=== PATIENT | male | born 1945 | race African-American/Black ===

== ENCOUNTER 2018-03-25 21:38 | Inpatient (IN) ==
[2018-03-25] MEDS ORDERED: TYLENOL PO ONE (21:53)
[2018-03-25] MEDS ORDERED: ROCEPHIN 1 GM in NS 50 ML IV ONE (22:02)
[2018-03-25] MEDS ORDERED: NS 1,000 ML IV ONE (22:02)
[2018-03-25] MEDS ORDERED: SOLU-MEDROL IV ONE (22:16)
[2018-03-25] MEDS ORDERED: LASIX IV ONE (22:17)
[2018-03-25] MEDS ORDERED: DUONEB (A & A) INH ONE (22:18)
[2018-03-25 22:26] LABS: BASO# 0.02 X1000 (0.0-0.2); BASO% 0.2 % (0.0-0.8); EOS# 0.14 X1000 (0.0-0.7); EOS% 1.4 % (0.0-10.0); HEMATOCRIT 39.9 % (42.0-52.0); HEMOGLOBIN 13.5 g/dL (14.0-18.0); IMM GRAN# 0.03 X1000 (0.0-0.04); IMM GRAN% 0.3 % (0.0-0.5); LYMPH# 0.73 X1000 (1.2-3.4); LYMPH% 7.5 % (20.5-51.1); MCH 30.8 PG (27-31); MCHC 33.8 g/dL (33-37); MCV 90.9 FL (81-99); MONO% 8.2 % (1.7-9.3); MPV 9.5 FL (7.4-10.4); NEUT# 7.99 X1000 (1.4-6.5); NEUT% 82.4 % (42.2-75.2); PLT 236 X1000 (130-400); RBC 4.39 XMIL (4.7-6.1); RDW 12.4 % (11.5-14.5); WBC 9.71 X1000 (4.8-10.8)
[2018-03-25 22:33] LABS: BE 3.1 mmoll (-3.0-3.0); BLOOD TYPE ARTERIAL; HCO3-(ACT) 27.2 mmoll (20.0-26.0); METHB 1.4 % (0.0-1.5); O2(CT) 16.8 mL/dL (15.0-23.0); O2HB 90.4 % (95.0-99.0); PCO2(98.6) 38 mmHg (35-45); PO2(98.6) 56 mmHg (60-100); SAMPLE BLOOD; THB 13.2 g/dL (11.5-17.4); pH(98.6) 7.46 (7.35-7.45)
[2018-03-25 22:34] LABS: ALLEN TEST NO; MODALITY VENTIMASK
[2018-03-25 22:53] LABS: ALBUMIN 3.7 g/dL (3.5-5.0); CALCIUM 9.1 mg/dL (8.8-10.2); CREATININE 1.3 mg/dL (0.7-1.2); POTASSIUM 3.8 mmol/L (3.5-5.1); TOTAL BILIRUBIN 0.7 mg/dL (0.20-1.00); TOTAL PROTEIN 7.6 g/dL (6.3-8.3)
--- NOTE | 2018-03-25 23:47 | EKG Report ---
Test Performed on : 03/25/2018 10:03:31 PM Test Reason : sob Blood Pressure : / mmHG Vent. Rate : 127 BPM Atrial Rate : 127 BPM P-R Int : 150 ms QRS Dur : 088 ms QT Int : 302 ms P-R-T Axes : 066 -04 044 degrees QTc Int : 438 ms Sinus tachycardia. Minimal voltage criteria for LVH, may be normal variant Borderline ECG When compared with ECG of 01-MAY-2012 16:37, ST no longer depressed in Inferior leads Unconfirmed Result
--- NOTE | 2018-03-26 01:15 | PROVIDER DOCUMENTATION ---
This chart was entered by Leny Kwan Scribe, acting as scribe for Jocelin Mcdermott MD. HPI-General Adult - General Chief Complaint: Fever Stated Complaint: BODY ACHES Time Seen by Provider: 03/25/18 22:00 Source: patient Allergies/Adverse Reactions: Patient Allergies Allergy/AdvReac Type Severity Reaction Status Date / Time No Known Allergies Allergy Verified 05/01/12 17:26 Home Medications: Home Medication List Medication Instructions Recorded Confirmed Last Taken Type Albuterol 0.5% INH Conc [Albuterol 2.5 mg INH Q4H PRN PRN 05/01/12 12/13/14 16:00 History 0.5% INH Conc For Hyperkalemia] Albuterol Sulfate [Proair Hfa] 2 puff PO BID 05/01/12 12/13/14 05/02/12 16:00 History Aspirin EC 81 mg PO DAILY 05/01/12 12/13/14 05/02/12 15:00 History Prednisone 20 mg PO PRN PRN 05/01/12 12/13/14 05/02/12 16:00 History Azilsartan Medoxomil [Edarbi] 40 mg PO DAILY 12/13/14 12/13/14 Unknown History Tamsulosin HCl [Flomax] 0.4 mg PO DAILY 5 Days #5 cap 03/20/18 Unknown Rx - History of Present Illness -Gen Adult Nature of Presenting Problems: Patient came to the ED due to SOB started yesterday, getting worse associated with cough and wheezing. he said they inserted hanks catheter few days ago due to difficulty with urination. Location of Pain/Injury: reports: generalized Pain Radiation: reports: no radiation Quality of Pain: reports: aching Severity: reports: moderate Onset/Duration: reports: 24 hours ago Timing: reports: still present Context/Activities at Onset: reports: light activity Modifying Factors: improves with: exercise (unable to walke grwather than half a block with out dyspnea), lying down (worsens symptoms. pt sleeps on 3 pillows normally) Associated Symptoms: reports: cough, dizziness, fatigue, fever/chills, headaches , malaise, muscle aches, shortness of breath, weakness, trouble walking. denies : chest pain, EENT symptoms Similar Symptoms Previously?: Yes Recently seen or treated by another doctor?: Yes (03/20/18-catheter placed) Review of Systems - Adult - REVIEW OF SYSTEMS - ADULT Constitutional: reports: chills, fever, fatique Eyes: denies: discharge, redness Ears, Nose, Mouth & Throat: denies: ear pain, sinus problem, throat pain Cardiovascular: reports: edema, other (JOHNSON). denies: chest pain, palpitations, syncope Respiratory: reports: cough, dyspnea on exertion, shortness of breath Gastrointestinal: reports: no symptoms reported Genitourinary: reports: no symptoms reported, other (pt does have urinary catheter in place) Musculoskeletal: reports: muscle aches, muscle weakness Integumentary: reports: no symptoms reported Neurological: reports: dizziness/vertigo. denies: headache/migraines, seizure, syncope Allergic/Immunologic: reports: no symptoms reported Past History - Adult - PAST MEDICAL HISTORY-ADULT Review of Records: reports: Old Records Reviewed, Nursing Assessment Review, Medications Reviewed, Social history reviewed & non-contributory. Major Childhood Illnesses: reports: denies history Cardiovascular: reports: HTN (been on med for 25 years.) Respiratory: reports: asthma Gastrointestinal: reports: denies history Obstetrical/Gynecological: reports: denies history Genitourinary: reports: denies history Musculoskeletal: reports: denies history Neurological: reports: denies history Endocrine/Immune: reports: denies history Other Conditions: reports: denies history - PRIOR SURGERIES/PROCEDURES Surgical/Procedure History: reports: other (sinus, prostate cancer, hernia repair) - IMMUNIZATION STATUS Childhood Immunizations: See Nurse Assessment Flu Vaccine: See Nurse Assessment - FAMILY HISTORY Family History: reviewed, not pertinent - SOCIAL HISTORY Smoking: non-smoker Substance Use: none/never Living Situation: family Physical Exam-General - PHYSICAL EXAM-ADULT Initial Vital Signs Reviewed: Yes - CONSTITUTIONAL General Appearance: alert, moderate distress - EYES Eyes: PERRL/EOMI - HEAD, EARS, NOSE, MOUTH & THROAT HENMT: normocephalic/atraumatic, moist mucous membranes - RESPIRATORY Respiratory: no pleuratic chest pain, decreased breath sounds (decreased air entry bilaterally), accessory muscle use, increased rate. negative: crackles, rales, rhonchi, wheezing - CARDIOVASCULAR Cardiovascular: normal peripheral pulses, tachycardia (130) - GASTROINTESTINAL (ABDOMEN) Abdominal Exam: normal bowel sounds, non tender, soft - MUSCULOSKELETAL Extremity: other (bilateral LE 3+pitting edema up to below knees) - SKIN Integumentary: normal color, normal turgor, warm/dry - NEUROLOGIC Neurologic: grossly normal Progress - PLAN OF CARE/RESULTS Progress/Plan/Lab Results: Vital Signs - 8 hr 03/25/18 21:46 Temperature 101.8 F H Pulse Rate 130 H Respiratory Rate 26 H O2 Sat by Pulse Oximetry 88 L Orders Category Date Time Status Nursing- Obtain EKG once Care 03/25/18 21:53 Active cxr [CHEST-2 VIEWS] [RAD] Stat Exams 03/25/18 22:03 Ordered ABG [RESP] Routine Lab 03/25/18 21:53 Ordered BLOOD CULTURE [BLDCUL] Stat Lab 03/25/18 21:53 Uncollected CBC WITH DIFF [HEME] Stat Lab 03/25/18 21:53 Ordered COMPREHENSIVE METABOLIC PANEL [CHEM] Stat Lab 03/25/18 21:[address] Stat Lab 03/25/18 21:53 Ordered LACTATE, PLASMA [CHEM] Stat Lab 03/25/18 21:[address] W/POSS RFLX CULT [URINALYSIS] Stat Lab 03/25/18 22:03 Uncollected 0.9% Sodium Chloride Inj [Ns] 1,000 ml Med 03/25/18 22:02 Active IV 999 mls/hr Acetaminophen [Tylenol] Med 03/25/18 21:53 Discontinued 1,000 mg PO NOW ONE CefTRIAXONE [Rocephin] 1 gm Med 03/25/18 22:02 Active 0.9% Sodium Chloride Inj [Ns] 50 ml IV NOW EKG [EKG] Stat Ther 03/25/18 21:53 Ordered Patient care, assessment and plan discussed with the attending physician Dr. Simpson and he agree with the plan as documented. sepsis protocol initiated early. Result Diagrams: 03/25/18 22:13 03/25/18 22:13 - REASSESSMENT Reassessment #1 Time Reassessed: 23:03 Status: improving (patient said his breathign improved alot. on exam fair air entry. B/L exp. wheeze.) Reassessment #2 Status: improving (feels better.) - EKG 1 Time of EKG reading by physician:: 22:03 EKG Read and Signed by:: Jocelin Mcdermott EKG Interpretation (*Must complete 3 of following elements*): Abnormal Rate: 127 Rhythm: sinus tachycardia [place]: normal QRS: LVH (may be normal varient) [place] Interval: normal ST Wave: normal - CONSULTS/PCP/HOSPITALIST Notification #1 *Consult/PCP/Hospitalist*: Dr. Corona Time Discussed: 00:17 Consult Disposition: Admit (Accepted. Hx, PE and DDX. discussed with Dr. Corona.) Departure - Departure Date of Disposition Decision: 03/26/18 Time of Disposition Decision: 00:17 DIAGNOSIS: Sepsis Qualifiers: Sepsis type: sepsis due to unspecified organism Qualified Code(s): A41.9 - Sepsis, unspecified organism Acute respiratory failure Qualifiers: Respiratory failure complication: hypoxia Qualified Code(s): J96.01 - Acute respiratory failure with hypoxia Asthma exacerbation Qualifiers: Asthma severity: severe Asthma persistence: unspecified Qualified Code(s): J45.901 - Unspecified asthma with (acute) exacerbation Disposition: ADMITTED INPATIENT 09 Certified Medical Emergency: Emergent Condition: Serious Referrals and Follow-Ups: Julian Kruger MD [Primary Care Provider] - - Critical Care Note This patient required my direct & personal management of CC.: Yes Total Time (mins): 30 Critical Care Statement: This patient required my direct personal management to treat or rule out processes, the absence of which, could potentiallly result in sudden, clinically significant life or limb threatening deterioration. Attestation - Physician/ ITALO Attestation Patient care was provided by Advanced Practice Provider:: No The physician spent face to face time with patient:: Yes Advanced Practice Provider documentation review:: Supervising physician onsite and consulted in the evaluation and care of this patient. The physician did have a face to face encounter with the patient. This chart was documented by the indicated scribe, (Leny Kwan Scribe) and accurately reflects the services I performed and decisions made by me, Jocelin Mcdermott MD, as attested by the provider's signature.
[2018-03-26] MEDS ORDERED: TYLENOL PO PRN (01:19)
[2018-03-26] MEDS ORDERED: CARDIZEM IV ONE (01:20)
[2018-03-26] MEDS ORDERED: ZOFRAN IV PRN (01:22)
[2018-03-26] MEDS ORDERED: TORADOL IV ONE (01:29)
[2018-03-26] MEDS: NS 1,000 ML IV SCH ×2 (01:30→15:00)
[2018-03-26] MEDS ORDERED: VANCOMYCIN 1 GM/NS 1 GM/250 ML IVPB IV ONE (01:36)
[2018-03-26 01:38] LABS: INFLUENZA A NEGATIVE (NEGATIVE); INFLUENZA B NEGATIVE (NEGATIVE)
[2018-03-26] MEDS: DUONEB (A & A) INH PRN ×6 (03:00→18:25)
[2018-03-26] MEDS ORDERED: BLISTEX MEDICATED BERRY LIP BALM TOP PRN (05:34)
--- NOTE | 2018-03-26 06:05 | Diag Imaging Result Doc PS360 ---
EXAM: CHEST-PORTABLE HISTORY: sepsis, desat TECHNIQUE: Portable chest single view COMPARISON: 12/13/2014 FINDINGS: The lungs are well expanded. The heart is not enlarged. The vessels are not distended. There are no infiltrates. No effusion identified. IMPRESSION: No pneumonia. Electronically signed by Christ Cruz 03/26/2018 6:03 AM
[2018-03-26 08:43] LABS: BILIRUBIN URINE NEGATIVE (NEGATIVE); BLOOD URINE 4+ (NEGATIVE); CLARITY CLEAR (CLEAR); COLOR YELLOW; KETONE URINE NEGATIVE (NEGATIVE); LEUKOCYTES URINE TRACE (NEGATIVE); NITRITE URINE NEGATIVE (NEGATIVE); PROTEIN URINE TRACE mg/dL (NEGATIVE); UROBILINOGEN URINE NORMAL
[2018-03-26 09:17] LABS: URINE BACTERIA 2+ /HFP; URINE EPITHELIAL CELLS <10 /HPF (<10); URINE SOURCE CATH
[2018-03-26 10:12] LABS: BASO# 0.01 X1000 (0.0-0.2); BASO% 0.1 % (0.0-0.8); HEMATOCRIT 36.4 % (42.0-52.0); HEMOGLOBIN 12.3 g/dL (14.0-18.0); IMM GRAN# 0.01 X1000 (0.0-0.04); IMM GRAN% 0.1 % (0.0-0.5); LYMPH# 0.49 X1000 (1.2-3.4); LYMPH% 7.2 % (20.5-51.1); MCH 30.5 PG (27-31); MCHC 33.8 g/dL (33-37); MCV 90.3 FL (81-99); MONO# 0.23 X1000 (0.11-0.59); MONO% 3.4 % (1.7-9.3); MPV 9.2 FL (7.4-10.4); NEUT# 6.07 X1000 (1.4-6.5); NEUT% 89.2 % (42.2-75.2); PLT 211 X1000 (130-400); RBC 4.03 XMIL (4.7-6.1); RDW 12.2 % (11.5-14.5); WBC 6.81 X1000 (4.8-10.8)
[2018-03-26 10:17] LABS: ALBUMIN 3.1 g/dL (3.5-5.0); CALCIUM 8.3 mg/dL (8.8-10.2); CREATININE 1.4 mg/dL (0.7-1.2); POTASSIUM 3.5 mmol/L (3.5-5.1); TOTAL BILIRUBIN 0.5 mg/dL (0.20-1.00); TOTAL PROTEIN 6.6 g/dL (6.3-8.3)
[2018-03-26 10:32] LABS: LYMPHS 7 % (21-51); MONO 3 % (1-9); SEGS 90 % (42-75)
[2018-03-26] MEDS ORDERED: SOLU-MEDROL ONE (18:26)
[2018-03-26] MEDS: ATIVAN ONE ×2 (18:32→18:49)
[2018-03-26] MEDS ORDERED: MAGNESIUM SULFATE 2 GM/S.W.I. 2 GM/50 ML IVPB ONE (18:36)
[2018-03-26] MEDS ORDERED: ROCEPHIN 1 GM in NS 50 ML IV ONE (18:38)
[2018-03-26] MEDS ORDERED: DUONEB (A & A) INH ONE (18:38)
[2018-03-26] MEDS ORDERED: MAGNESIUM SULFATE 2 GM/S.W.I. 2 GM/50 ML IVPB IV ONE (18:38)
[2018-03-26] MEDS ORDERED: ATIVAN IV ONE (18:39)
[2018-03-26] MEDS ORDERED: SOLU-MEDROL IV ONE (18:40)
[2018-03-26] MEDS ORDERED: VANCOMYCIN IV PER PHARMACY MISC SCH (19:00)
[2018-03-26 19:07] LABS: BE -0.5 mmoll (-3.0-3.0); BLOOD TYPE ARTERIAL; HCO3-(ACT) 24.3 mmoll (20.0-26.0); METHB 1.4 % (0.0-1.5); O2(CT) 15.5 mL/dL (15.0-23.0); PCO2(98.6) 51 mmHg (35-45); PO2(98.6) 53 mmHg (60-100); SAMPLE BLOOD; SAO2 90.1 % (95.0-100.0); THB 12.7 g/dL (11.5-17.4); pH(98.6) 7.32 (7.35-7.45)
[2018-03-26 19:10] LABS: ALLEN TEST YES; MODALITY CANNULA
[2018-03-26] MEDS ORDERED: VANCOMYCIN 2,000 MG in NS 500 ML IV ONE (20:00)
[2018-03-26] MEDS: DUONEB (A & A) INH SCH ×2 (20:47→22:47)
--- NOTE | 2018-03-26 21:49 | Diag Imaging Result Doc PS360 ---
EXAM: CT ANGIOGRM PULMONARY ARTERIES INDICATION: sob TECHNIQUE: This exam was performed using automated exposure control, adjustment of mA or kV according to patient size, and/or use of iterative reconstruction technique. Thin section axial images and 3-D MIPS were obtained. COMPARISON: None. FINDINGS: There is excessive respiratory motion artifact, which may decrease sensitivity for detection of small pulmonary emboli, especially in the distal branches. However, no definite filling defect is identified to indicate pulmonary embolism. No aortic aneurysm or dissection is appreciated. There is no cardiomegaly. There are a few nonspecific mildly prominent right hilar lymph nodes. There are a few scattered subcentimeter nodules bilaterally but mainly on the right, especially in the right lower lobe and right middle lobe. One of the largest nodules is in the right lower lobe measuring up to 6 mm. They are nonspecific and could represent noncalcified granulomata. Consider follow-up based on Fleischner Society criteria. There are minimal emphysematous changes bilaterally. The lungs are clear, otherwise. There is no pleural fluid collection and no pneumothorax. Limited views of the upper abdomen reveals a few simple appearing renal cysts. IMPRESSION: 1.Somewhat limited by motion artifact but no definite pulmonary embolism identified. 2.Several subcentimeter noncalcified nodules bilaterally but predominantly in the right middle lobe and right lower lobe, nonspecific. 3.Mild right hilar lymphadenopathy. Electronically signed by Jono Kincaid 03/26/2018 9:46 PM
[2018-03-26] MEDS ORDERED: ATIVAN IV PRN (21:50)
[2018-03-27] MEDS: DUONEB (A & A) INH SCH ×6 (02:58→22:42)
[2018-03-27] MEDS: NS 1,000 ML IV SCH ×3 (05:19→21:10)
--- NOTE | 2018-03-27 06:52 | PROGRESS NOTE ---
DATE: 03/26/2018 SUBJECTIVE: This is a 72-year-old male in the intensive care unit who has a past history of asthma, presented to the emergency room with a couple of problems. One was that he was having recent issues with bladder control and ability to urinate, small streams, and long-standing history of hypertension and long-standing history of asthma. When he got in today, his blood gas was pH 7.46, pCO2 38, pO2 56, 94% O2 saturation on 50% Venturi mask. Electrolytes were normal. BUN was 17, creatinine 1.3, glucose 129, calcium 9.1, ALT 13, AST 19, alkaline phosphatase 72. PSA diagnostic was not obtained. His flu A and flu B swabs were negative. CBC: White count was 9700, hematocrit 40. Chest x-ray was read as normal. OBJECTIVE: The patient initially had a temperature when he got in of 101.8, pulse 130, respiratory rate 26, O2 saturation 88 on room air. He continues to have kind of scanty urine output. He has 2-3+ edema in the pretibial areas of his skin. Lungs: Inspiratory and expiratory wheezing. He continues to cough and spit up clear phlegm. PLAN: We are going to increase his steroids and continue antibiotics pending cultures. He earlier received Rocephin and vancomycin. cc: Julian Kruger MD
[2018-03-27] MEDS ORDERED: LASIX IV ONE (07:23)
--- NOTE | 2018-03-27 07:38 | HISTORY AND PHYSICAL ---
HISTORY OF PRESENT ILLNESS: The patient is a regular office patient of [facility] who I see and treat for chronic asthma of long-standing duration, hypertension, uncomplicated, and BPH with Flomax which has become a recent problem. He presented to the ER on the day of admission complaining of shortness of breath that started the day prior. It has gotten worse, associated with cough and wheeze. He said they inserted a Paula a couple of days prior due to difficulty urinating and he is supposed to see the urologist in a week. He reports that these symptoms have been going on roughly 24 hours. He is currently limiting his activity to half a block at best without getting dyspneic. Lying down worsens his symptoms. She sleeps on 3 pillows. He denies having any significant amount of phlegm production. What he has cough up has been generally clear. When he arrived here, he had a fever. He felt like he has been fever and felt like he had had some chills prior. He had a 102 temperature. He is just generalized fatigued. He had a chest x-ray done in the ER that did not show any infiltrate or pneumonia. EKG with 127 sinus tachycardia, LVH, normal variant. Chest x-ray subsequently read by Radiology was read as normal, no infiltrates. His initial CBC, white count was 13,500, hematocrit was 39.9, hemoglobin 13.5, white count 9700, platelet count 236. His electrolytes were normal. BUN 17, creatinine 1.3, sodium 129. In the ER, he was cultured up, checked for flu which was negative, urine was ordered. He was given a bolus of sodium chloride and a gram of ceftriaxone and subsequently a gram of vancomycin. His temperature was 101.8 in the ER, pulse 130, respiratory rate 26, O2 saturation 88. Throughout the day, he has been getting breathing treatments and been doing reasonably well until this evening when he developed shortness of breath. He had gotten no steroids during the day other than the one he had received earlier in the morning. He was admitted for an asthma exacerbation. His blood gases on a Ventimask, pH was 7.46, pCO2 38, pO2 56. His O2 saturation was 94% on 50%. His lactate was 0.9. His BUN and creatinine were all within normal range. His estimated GFR was somewhere between 54 and 50. Glucose 129 to 150. His BNP was 197. PSA was 4.7. Plasma lactate was negative. Urine: Trace protein, 4+ blood, 10-20 RBCs. REVIEW OF SYSTEMS: General: He claims to have had chills, fever, and fatigue. He has no discharge, redness or change in visual acuity. Ears, nose and throat: No sinusitis or rhinitis, pharyngitis. Cardiovascular: He denied chest pain, palpitations, or syncope. He just complained of edema that has been a problem. It is probably 2+ pretibial edema. Respiratory: He has a chronic cough. He gets very short of breath on exertion and generally short of breath with lots of talking. Gastrointestinal: No nausea, vomiting, diarrhea, constipation, bloody stools, black stools, tarry stools. Genitourinary: Recently he has had a problem with urinating, dribbling stream with a PSA that was within normal range, large prostate by physical exam. He was sent to Urology for intervention as he was not really responding to tamsulosin, and he had a Paula placed in. He was supposed to be seen within a week. Musculoskeletal: He has chronic muscle aches but nothing particularly bad. Skin: No lesions or rashes. Neurologic: He has no focal neurologic deficits. He denies headaches, migraines, seizures, syncope. ALLERGIES: He has a long-standing history of asthma that has been going on for many years that he treats with prednisone. PAST MEDICAL HISTORY: 1. Hypertension for 25 years, has been uncomplicated. 2. Asthma for many years. He has been on chronic treatment with steroids and rescue inhalers, and inhalers. 3. He has no history of problems with blood clotting or bleeding. 4. No diabetes or thyroid problems. PAST SURGICAL HISTORY: 1. Hernia repair. 2. Prostate cancer. 3. Sinus disease. SOCIAL HISTORY: He is a nonsmoker, lives with his family. PHYSICAL EXAMINATION: HEENT: His head was normocephalic. Eyes were PERRLA. EOMs intact. SC clear. Fundi benign. Nares patent. Oropharynx negative. NECK: Supple. Bounding carotids without thyromegaly. CHEST: He had diminished breath sounds bilaterally. He was accessory breathing with his chest muscles. He had no appreciated consolidative findings. CARDIOVASCULAR: He had a normal rhythm and rate. No gallops or rubs or murmurs. He had a heart rate of 130. ABDOMEN: Normal bowel sounds, soft, nontender, no masses. EXTREMITIES: 2+ edema below the knees. SKIN: Clear otherwise. NEUROLOGIC: Intact. He was admitted to initially Dr. Corona and placed on vancomycin and Rocephin in the ER, and was given prednisone in the ER. Will follow him up. He is admitted to the ICU because of his severe respiratory distress that he intermittently gets into and we will follow him as an outpatient. cc: Julian Kruger MD MTDD
[2018-03-27] MEDS: SOLU-MEDROL IV SCH ×3 (07:48→23:34)
[2018-03-27 10:01] LABS: BE 3.1 mmoll (-3.0-3.0); BLOOD TYPE ARTERIAL; HCO3-(ACT) 27.3 mmoll (20.0-26.0); METHB 1.3 % (0.0-1.5); O2HB 96.3 % (95.0-99.0); PCO2(98.6) 46 mmHg (35-45); PO2(98.6) 91 mmHg (60-100); SAMPLE BLOOD; SAO2 99.5 % (95.0-100.0); THB 12.5 g/dL (11.5-17.4)
[2018-03-27 10:05] LABS: ALLEN TEST YES; MODALITY HIGH FLOW NASAL CAN
[2018-03-27 10:32] LABS: HEMATOCRIT 37.5 % (42.0-52.0); HEMOGLOBIN 12.4 g/dL (14.0-18.0); IMM GRAN# 0.02 X1000 (0.0-0.04); IMM GRAN% 0.2 % (0.0-0.5); LYMPH# 0.51 X1000 (1.2-3.4); LYMPH% 4.1 % (20.5-51.1); MCH 29.9 PG (27-31); MCHC 33.1 g/dL (33-37); MCV 90.4 FL (81-99); MONO# 0.45 X1000 (0.11-0.59); MONO% 3.6 % (1.7-9.3); MPV 9.5 FL (7.4-10.4); NEUT# 11.54 X1000 (1.4-6.5); NEUT% 92.1 % (42.2-75.2); PLT 228 X1000 (130-400); RBC 4.15 XMIL (4.7-6.1); RDW 12.3 % (11.5-14.5); WBC 12.52 X1000 (4.8-10.8)
[2018-03-27 10:34] LABS: ALBUMIN 3.3 g/dL (3.5-5.0); CALCIUM 8.4 mg/dL (8.8-10.2); CREATININE 1.4 mg/dL (0.7-1.2); POTASSIUM 3.9 mmol/L (3.5-5.1); TOTAL BILIRUBIN 0.4 mg/dL (0.20-1.00); TOTAL PROTEIN 6.8 g/dL (6.3-8.3)
[2018-03-27] MEDS: ZOSYN 3.375 GM in NS 50 ML IV SCH ×3 (12:00→23:34)
--- NOTE | 2018-03-27 15:42 | PROGRESS NOTE ---
DATE: 03/27/2018 He is still in the Intensive Care Unit. Last night he had a CT pulmonary angiogram that did not show any PEs; some nonspecific lymphadenopathy, otherwise negative. He had some significant episodes of air hunger about 6:00 p.m. or 7:00 p.m. last night where he was gasping for breath momentarily and we had to give him magnesium 2 g and start him on high dose prednisone therapy and [id number] albuterol treatments and a little Ativan to calm him. He had problems spitting up particularly tenacious sputum. His blood gases today showed on a high flow system that pH was 7.4, pCO2 46, and pO2 91 on 40% high flow mask. During the spells or shortly after the spells last night his pH was 7.32, pCO2 51, and pO2 53 on 40% cannula. He is on broad-spectrum antibiotic coverage pending cultures. He is breathing quite a bit better. He is talking without difficulties. He is concerned about the Paula catheter that he is currently wearing for his BPH. We will continue our medications and plan on transferring him out in the morning. cc: Julian Kruger MD
[2018-03-27] MEDS: VANCOMYCIN 1,600 MG in NS 250 ML IV SCH (20:05)
[2018-03-28] MEDS: DUONEB (A & A) INH PRN (02:13)
[2018-03-28] MEDS: DUONEB (A & A) INH SCH ×6 (03:53→23:50)
[2018-03-28] MEDS: ZOSYN 3.375 GM in NS 50 ML IV SCH ×4 (06:17→23:50)
[2018-03-28] MEDS: NS 1,000 ML IV SCH ×2 (07:57→12:17)
[2018-03-28] MEDS: SOLU-MEDROL IV SCH ×3 (07:59→23:41)
[2018-03-28] MEDS ORDERED: AVAPRO PO ONE (16:43)
[2018-03-28] MEDS: VANCOMYCIN 1,600 MG in NS 250 ML IV SCH (19:46)
[2018-03-28] MEDS: APRESOLINE IV PRN ×2 (19:47→23:41)
[2018-03-29] MEDS: NS 1,000 ML IV SCH (03:50)
[2018-03-29] MEDS: APRESOLINE IV PRN (05:25)
[2018-03-29] MEDS: ZOSYN 3.375 GM in NS 50 ML IV SCH ×3 (05:25→18:28)
[2018-03-29] MEDS: SOLU-MEDROL IV SCH ×2 (06:51→17:25)
[2018-03-29] MEDS: DUONEB (A & A) INH SCH ×4 (08:30→19:07)
[2018-03-29] MEDS ORDERED: AVAPRO PO SCH (09:00)
[2018-03-29 13:42] LABS: BE 2.4 mmoll (-3.0-3.0); BLOOD TYPE ARTERIAL; HCO3-(ACT) 26.8 mmoll (20.0-26.0); METHB 1.2 % (0.0-1.5); O2(CT) 17.2 mL/dL (15.0-23.0); O2HB 95.3 % (95.0-99.0); PCO2(98.6) 42 mmHg (35-45); PO2(98.6) 80 mmHg (60-100); SAMPLE BLOOD; SAO2 98.5 % (95.0-100.0); THB 12.8 g/dL (11.5-17.4); pH(98.6) 7.42 (7.35-7.45)
[2018-03-29 13:50] LABS: MODALITY CANNULA
[2018-03-29 13:51] LABS: ALLEN TEST YES
--- NOTE | 2018-03-29 15:30 | PROGRESS NOTE ---
DATE: 03/28/2018 The patient's blood pressure was 172/87, temperature was 98, respiratory rate 19, pulse 86 on 5L nasal cannula. He had a 99% oxygen saturation with a flow rate of 5. His microbiology shows no growth. His breathing was much better than it has been the past few days. He is no longer as tachypneic and does not seem to have such air hunger. Hear more breath sounds in his chest. We are in the process of weaning him off of high-flow O2, which he has tolerated very nicely. Also, the edema of his legs has subsequently disappeared. We will continue the weaning process and go from there. cc: Julian Kruger MD
[2018-03-29 16:10] LABS: BLOOD TYPE ARTERIAL; HCO3-(ACT) 25.5 mmoll (20.0-26.0); METHB 1.5 % (0.0-1.5); O2(CT) 17.6 mL/dL (15.0-23.0); PCO2(98.6) 38 mmHg (35-45); PO2(98.6) 53 mmHg (60-100); SAMPLE BLOOD; SAO2 93.3 % (95.0-100.0); pH(98.6) 7.43 (7.35-7.45)
[2018-03-29 16:16] LABS: ALLEN TEST YES; MODALITY ROOM AIR; O2HB 89.8 % (95.0-99.0)
--- NOTE | 2018-03-29 17:03 | PROGRESS NOTE ---
DATE: 03/28/2018 VITAL SIGNS ON 03/28/2018: Temperature was 98, pulse 86, respirations 19, and blood pressure 172/87. O2 saturation was 99% on 5 L. His CBC from the previous day revealed a WBC of 12,052, hematocrit 37.5 and platelet count 228. I suspect this white count is from being on steroids. His chemistries on 03/27/2018 revealed a BUN of 24, creatinine of 1.4, electrolytes were normal, and GFR was 50. PSA diagnostic was 4.71. Culture data is negative. He has had some significant problems with breathing. He has persistent chronic asthma; I have never listened to him where he did not have significant asthma. He has managed it on his own with inhalers and prednisone but he is currently tolerating his high flow oxygen device and he does not have any significant problems. cc: Julian Kruger MD
[2018-03-29 18:00] VITALS: BP 185/90
--- NOTE | 2018-04-22 11:00 | DISCHARGE SUMMARY ---
ADMISSION DATE: 03/26/2018 DISCHARGE DATE: 03/29/2018 HISTORY OF PRESENT ILLNESS: This is a 72-year-old black male with a longstanding history of asthma and hypertension, who is a regular patient of mine. He had recently been having some difficulty urinating and ultimately got a catheter inserted by the ER to drain his bladder and arranged for a urological consult. But subsequently he developed a cough, fever and presented to the emergency room on the day of admission, 03/25/2018. He was checked for flu which was negative. Toxicology negative. His urine had 10 to 20 RBCs, trace white cells, 2+ bacteria, 5 to 10 WBCs, 4+ blood in his cathed urine that had been placed earlier in the week. His BUN was 17, creatinine 1.3. Electrolytes were normal. Liver functions normal. Plasma lactate normal at 1.7. PSA was 4.7. Blood gases on admission showed pH of 7.46, pCO2 of 38, pO2 of 56 on 50% Ventimask. He was wheezing and very tachypneic, moving little to no air. We tried some CPAP and high flow oxygen. His gases started to improve. He did not tolerate this, he would have to take it off periodically. Initially with the cannula at 40%, pH was 7.32, pCO2 was 51, pO2 was 53. Towards the end of the hospital stay after we had been treating him for both pneumonia and aggravated asthma, his gases on FiO2 of 21% showed pH of 7.43, pCO2 of 38, pO2 was 53. We made arrangements for him to have some home O2 because of that while he was still kind of coming out of this asthma attack. He always has asthma, and it just periodically gets worse. His white count on admission was 9700, it went up secondary to steroids. Hematocrit was 40, differential was a left shift, also steroid induced. We discharged him after several days on oxygen, nebulizer treatments, IV antibiotics, steroids. He slowly got better. He was no longer tachypneic with just speaking. We made arrangements for him to see a urologist to address his BPH and lower urinary tract symptoms. His PSA was normal. It was been arranged with suspected TURP in the ensuing weeks. His asthma has gotten back to basically baseline. He will continue to use steroids and nebulizer treatments, and we have arranged for him to have home O2. He is going to follow up in the office. DISCHARGE DIAGNOSES: 1. Chronic obstructive pulmonary disease exacerbation with respiratory failure. 2. Benign prostatic hypertrophy with lower urinary tract symptoms. 3. History of hypertension. cc: Julian Kruger MD
== END 2018-03-29 20:45 | disposition home or self-care (01) | DRG 189 ==
LOC: P.ED 21:38 → P.ICU 03-26 00:46
PROVIDERS: ADMIT Internal Medicine; ATTEND Internal Medicine
CPT/HCPCS: 71010; 71045; 71275; 80053; 80202; 81001; 82805; 83605; 83880; 84153; 85025; 87040; 87088; 87275; 87276; 87804; 93005; 94640; 94761; 96361; 96365; 96366; 96375; 99285; 99291; A9270; J0360; J0696; J1885; J1940; J2060; J2543; J2930; J3370; J3475; J7030; J7040; J7050; Q9967

== ENCOUNTER 2018-04-19 13:14 | Day surgery (SDC) ==
[2018-04-12 11:08] LABS: HEMATOCRIT 35.5 % (42.0-52.0); HEMOGLOBIN 11.1 g/dL (14.0-18.0); MCH 29.4 PG (27-31); MCHC 31.3 g/dL (33-37); MCV 94.2 FL (81-99); MPV 8.8 FL (7.4-10.4); RBC 3.77 XMIL (4.7-6.1); RDW 12.4 % (11.5-14.5); WBC 7.57 X1000 (4.8-10.8)
[2018-04-12 11:28] LABS: AGAP 8; BUN 13 mg/dL (8-22); CALCIUM 9.1 mg/dL (8.8-10.2); CHLORIDE 104 mmol/L (98-107); COSMO 282; CREATININE 1.1 mg/dL (0.7-1.2); ESTIMATED GFR > 60; GLUCOSE 101 mg/dL (70-104); SODIUM 141 mmol/L (136-145); TCO2 29 mmol/L (25-35)
[2018-04-19] MEDS ORDERED: LR 1,000 ML ONE ×2 (13:43→17:18)
[2018-04-19] MEDS ORDERED: KEFZOL 2 GM/D5W 2 GM/50 ML IVPB ONE (13:43)
[2018-04-19] MEDS ORDERED: GENTAMICIN 80 MG/NS 80 MG/50 ML IVPB ONE (13:43)
--- NOTE | 2018-04-19 14:42 | EKG Report ---
Test Performed on : 04/19/2018 1:50:48 PM Test Reason : Preop Blood Pressure : / mmHG Vent. Rate : 100 BPM Atrial Rate : 100 BPM P-R Int : 160 ms QRS Dur : 090 ms QT Int : 340 ms P-R-T Axes : 051 -04 015 degrees QTc Int : 438 ms Normal sinus rhythm. Voltage criteria for left ventricular hypertrophy Abnormal ECG When compared with ECG of 25-MAR-2018 22:03, No significant change was found Unconfirmed Result
[2018-04-19] MEDS ORDERED: DIPRIVAN 1% ONE ×2 (14:50→15:36)
[2018-04-19] MEDS ORDERED: XYLOCAINE-MPF 2% ONE (14:50)
[2018-04-19] MEDS ORDERED: DECADRON ONE (15:45)
[2018-04-19] MEDS ORDERED: ZOFRAN ONE (15:45)
[2018-04-19] MEDS ORDERED: B & O 15A SUPP ONE (16:57)
[2018-04-19] MEDS: MORPHINE ONE ×4 (17:34→17:55)
--- NOTE | 2018-04-19 18:53 | OPERATIVE NOTE ---
PROCEDURE DATE: 04/19/2018 SURGEON: Marcelo Oliva MD PREOPERATIVE DIAGNOSIS: Enlarged prostate with obstructive voiding symptoms and urinary retention. POSTOPERATIVE DIAGNOSIS: Enlarged prostate with obstructive voiding symptoms and urinary retention. PROCEDURE PERFORMED: Cystoscopic exam, transurethral resection of the prostate, place suprapubic tube. ANESTHESIA: General via laryngeal mask. FINDINGS: Cystoscopic exam: Urethra--greater than 25-Haitian without stricture. Prostate-- coapting lateral lobes elevated, bladder neck length approximately 4.5 to 5 cm. Bladder--normal ureteral orifices bilaterally, grade 1 trabeculations. No papillary lesions. No diverticula. INDICATION FOR PROCEDURE: This 72-year-old male has a long history of enlarged prostate with obstructive voiding symptoms. He had been on Flomax 0.4 mg a day. He had vascular surgery and developed postop urinary retention. He has had several voiding trials, and his Flomax was increased to twice a day. He desires transurethral resection of prostate in an attempt to start spontaneously voiding. A suprapubic tube will be placed in case he cannot void. DESCRIPTION OF PROCEDURE: After informed consent was obtained from the patient and him receiving IV antibiotics, he was taken to the main OR cystoscopy room, placed in the supine position. General anesthesia via laryngeal mask was achieved. He was then placed in the low lithotomy position and prepped and draped in the usual sterile fashion for cystoscopic exam. A 21-Haitian cystoscope was passed per the patient's urethra, prostate, and bladder with findings noted above. The cystoscope was removed leaving the bladder distended. A 25.4-Haitian continuous flow resectoscope sheath was placed. The thick Gyrus loop electrode was placed. Both ureteral orifices were visualized as well as the verumontanum. The procedure was started at the 6 o'clock position going to the level of bladder neck, level of the verumontanum, proceeding in a counterclockwise direction to the 2 o'clock position. The resection was then started back at the 6 o'clock position, going from the level of bladder neck to level of the verumontanum, proceeding in a clockwise direction to the 10 o'clock position. Tissue from the anterior prostatic urethra was removed between the 2 o'clock and 10 o'clock positions from the level of the bladder neck to the level of the verumontanum. Hemostasis was achieved with electrocautery. The chips were removed from the bladder with the [facility] evacuators. At completion of the procedure, both ureteral orifices were intact. The channel was wide open. The verumontanum was intact. The bladder was distended. A stab incision was made about 2 fingerbreadths above the pubic bone in the midline. The Todd suprapubic tube introducer was passed through the stab incision and into the bladder under direct vision. The trocar was removed. A 16-Haitian Paula catheter was passed through the sheath. 10 mL of sterile water were placed in a Paula balloon. The sheath was removed. The wound was dressed with gauze and paper tape. The resectoscope sheath was removed. A 22-Haitian, 3- way Paula catheter was passed through the patient's urethra, prostate, and bladder without difficulty. 30 mL of sterile water were placed in the Paula balloon. The Paula was placed to gravity drain. The efflux was clear. Continuous bladder irrigation of normal saline was started. The suprapubic tube was plugged. The suprapubic tube was sutured to the skin with 0 silk, and then the dressing was applied. He tolerated the procedure well. Estimated blood loss was 300 mL. He was taken to the recovery room in good condition. cc: Marcelo Oliva MD
[2018-04-19] MEDS ORDERED: PREDNISONE PO PRN (19:32)
[2018-04-19] MEDS ORDERED: VENTOLIN HFA INH PRN (19:32)
[2018-04-19] MEDS ORDERED: DIFLUCAN PO SCH (19:45)
[2018-04-19] MEDS ORDERED: PHENERGAN IV PRN (20:00)
[2018-04-19] MEDS ORDERED: NORCO-10 PO PRN (20:00)
[2018-04-19] MEDS ORDERED: LABETALOL IV PRN (20:00)
[2018-04-19] MEDS ORDERED: SODIUM CHLORIDE 0.9% INJ PRN (20:00)
[2018-04-19] MEDS ORDERED: DITROPAN PO PRN (20:00)
[2018-04-19] MEDS ORDERED: LR 1,000 ML IV SCH (20:00)
[2018-04-19] MEDS ORDERED: NORCO-5 PO PRN (20:00)
[2018-04-19] MEDS ORDERED: NORCO-7.5 PO PRN (20:00)
[2018-04-19] MEDS ORDERED: B & O 15A SUPP PR PRN (20:00)
[2018-04-19] MEDS: KEFZOL 1 GM/D5W 1 GM/50 ML IVPB IV SCH (21:39)
[2018-04-19] MEDS: PERIDEX MT SCH ×2 (21:40→21:47)
[2018-04-19] MEDS: PEPCID PO SCH (21:40)
[2018-04-19] MEDS: COLACE PO SCH (21:40)
[2018-04-19] MEDS: VENTOLIN HFA INH SCH (23:23)
[2018-04-19] MEDS: ADVAIR 500/50 DISKUS INH SCH (23:23)
[2018-04-19] MEDS: DUONEB (A & A) INH PRN (23:24)
[2018-04-20] MEDS: KEFZOL 1 GM/D5W 1 GM/50 ML IVPB IV SCH (05:10)
[2018-04-20] MEDS: ADVAIR 500/50 DISKUS INH SCH (08:04)
[2018-04-20] MEDS: VENTOLIN HFA INH SCH (08:05)
[2018-04-20] MEDS ORDERED: ASPIRIN EC PO SCH (09:00)
[2018-04-20] MEDS ORDERED: DOXYCYCLINE PO SCH (09:00)
[2018-04-20] MEDS ORDERED: NORVASC PO SCH (09:00)
[2018-04-20] MEDS ORDERED: BENICAR PO SCH (09:00)
[2018-04-20] MEDS: PEPCID PO SCH (09:19)
[2018-04-20] MEDS: PERIDEX MT SCH ×2 (09:19→09:21)
[2018-04-20] MEDS: COLACE PO SCH (09:20)
[2018-04-20] MEDS: DUONEB (A & A) INH PRN (10:21)
[2018-04-20 11:39] VITALS: BP 129/82
== END 2018-04-20 13:17 | disposition home or self-care (01) ==
LOC: 4N 13:14 → OR 13:14
PROVIDERS: ATTEND Urology
PROC: UR.TURP (2018-04-19 15:30)
CPT/HCPCS: 80048; 85027; 88305; 88313; 93005; 93010; 94640; 94761; A9270; J0690; J1100; J1580; J2270; J2405; J7120

== ENCOUNTER 2019-03-27 15:15 | Observation (INO) ==
--- NOTE | 2019-03-27 19:57 | PROVIDER DOCUMENTATION ---
This chart was entered by Ninfa Kincaid Scribe, acting as scribe for Lavonne Rendon MD. HPI-General Adult - General Chief Complaint: B/P Problems Stated Complaint: HIGH BP, DIZZY Time Seen by Provider: 03/27/19 18:27 Source: patient Allergies/Adverse Reactions: Patient Allergies Allergy/AdvReac Type Severity Reaction Status Date / Time No Known Allergies Allergy Verified 04/12/18 10:02 Home Medications: Home Medication List Medication Instructions Recorded Confirmed Last Taken Type Albuterol Sulfate [Proair Hfa] 2 puff PO BID 05/01/12 03/27/19 03/29/18 09:00 History Aspirin EC 81 mg PO DAILY 05/01/12 03/27/19 04/05/18 History Prednisone 20 mg PO PRN PRN 05/01/12 03/27/19 04/12/18 08:00 History Amlodipine [Norvasc] 5 mg PO DAILY 04/12/18 03/27/19 04/18/18 09:00 History Fluticasone/Salmet 500/50 INH 1 puff INH BID 04/12/18 03/27/19 03/29/18 09:00 History [Advair 500/50 Diskus] Ipratropium/Albuterol Sulfate 3 ml IH PRN PRN 04/12/18 03/27/19 03/29/18 10:00 History [Iprat-Albut 0.5-3(2.5) mg/3 ml] Hydralazine [Apresoline] 25 mg PO Q8H PRN PRN #30 tab 03/27/19 Unknown Rx - History of Present Illness -Gen Adult Nature of Presenting Problems: 73 yobm c/o dizziness last week, was seen by [facility], rx clonodine and norvasc 5mg. took clonodine 3-4 days 1x a day. also c/o htn. 1500 today decided to come to er bc of dizziness and duration of spell. States he has hx of vertigo but this time it lasted more than 30 mintues and has been more severe. pcp is Dr. Kruger. no other rx or otc meds for symptoms. denies castro. Location of Pain/Injury: reports: none Pain Radiation: reports: no radiation Quality of Pain: reports: none Onset/Duration: reports: last week Timing: reports: still present Context/Activities at Onset: reports: none Modifying Factors: improves with: nothing Associated Symptoms: reports: dizziness, other (htn) Similar Symptoms Previously?: Yes Recently seen or treated by another doctor?: Yes ([facility] [place] last week ) Review of Systems - Adult - REVIEW OF SYSTEMS - ADULT Constitutional: reports: no symptoms reported. denies: fever, fatique, night sweats Eyes: reports: no symptoms reported Ears, Nose, Mouth & Throat: reports: no symptoms reported Cardiovascular: reports: see HPI, other (htn). denies: chest pain, irregular heart rate, palpitations, syncope Respiratory: reports: no symptoms reported Gastrointestinal: reports: no symptoms reported Genitourinary: reports: no symptoms reported Musculoskeletal: reports: no symptoms reported Integumentary: reports: no symptoms reported Neurological: reports: see HPI, dizziness/vertigo. denies: headache/migraines, loss of balance, numbness Psychiatric: reports: no symptoms reported Endocrine: reports: no symptoms reported Hematologic/Lymphatic: reports: no symptoms reported Allergic/Immunologic: reports: no symptoms reported All Other Systems: Reviewed and Negative Past History - Adult - PAST MEDICAL HISTORY-ADULT Review of Records: reports: Old Records Reviewed, Nursing Assessment Review, Medications Reviewed, Social history reviewed & non-contributory. Major Childhood Illnesses: reports: denies history Cardiovascular: reports: HTN (been on med for 25 years.) Respiratory: reports: asthma Gastrointestinal: reports: denies history Obstetrical/Gynecological: reports: denies history Genitourinary: reports: denies history Musculoskeletal: reports: denies history Neurological: reports: denies history Endocrine/Immune: reports: denies history Other Conditions: reports: denies history - PRIOR SURGERIES/PROCEDURES Surgical/Procedure History: reports: hernia repair, other (sinus, prostate cancer, hernia repair) - IMMUNIZATION STATUS Childhood Immunizations: See Nurse Assessment Flu Vaccine: See Nurse Assessment - FAMILY HISTORY Family History: reviewed, not pertinent - SOCIAL HISTORY Smoking: non-smoker Substance Use: none/never Physical Exam-General - PHYSICAL EXAM-ADULT Initial Vital Signs Reviewed: Yes - CONSTITUTIONAL General Appearance: appears well, alert, no apparent distress. negative: lethargic, slow to respond, obtunded - EYES Eyes: PERRL/EOMI - HEAD, EARS, NOSE, MOUTH & THROAT HENMT: normocephalic/atraumatic, moist mucous membranes - NECK Neck: non-tender, full range of motion, supple, normal inspection - RESPIRATORY Respiratory: chest non-tender, normal breath sounds, no pleuratic chest pain, no respiratory distress, no accessory muscle use, wheezing. negative: lungs clear, accessory muscle use, crackles, rales, rhonchi, stridor - CARDIOVASCULAR Cardiovascular: normal peripheral pulses, regular rate, rhythm - GASTROINTESTINAL (ABDOMEN) Abdominal Exam: normal bowel sounds, non tender, soft - MUSCULOSKELETAL Back Exam: normal inspection Extremity: normal range of motion, non-tender, normal gait, normal inspection - SKIN Integumentary: normal color, normal turgor, warm/dry - NEUROLOGIC Neurologic: customer care specialist II-XII nml as tested, grossly normal, no motor/sensory deficits. negative: facial droop, focal weakness, motor weakness, sensory deficit - PSYCHIATRIC Psych/Mental Status: normal mood/affect, normal thought content, normal thought process, oriented x 3 Progress - PLAN OF CARE/RESULTS Progress/Plan/Lab Results: Vital Signs - 8 hr 03/27/19 15:25 Temperature 98 F Pulse Rate 88 Respiratory Rate 18 Blood Pressure 217/106 O2 Sat by Pulse Oximetry 95 Unable to control patient's BP in the ED and still complaining of dizziness with meclizine. Concern for possible posterior stroke Will need admission. Spoke to Dr Wylie, director semiconductor for hosp as Dr Kruger is out of town. Stable for floor with telemetry and fall precautions. Result Diagrams: 03/27/19 20:25 03/27/19 20:25 - EKG 1 Time of EKG reading by physician:: 20:17 EKG Read and Signed by:: Lavonne Rendon EKG Interpretation (*Must complete 3 of following elements*): Abnormal Rate: 82 Rhythm: NSR [place]: normal QRS: LVH CT Interval: normal ST Wave: normal - CT/MRI 1 CT Study: Head (EXAM: CT HEAD W/O CONTRAST INDICATION: headache, dizziness TECHNIQUE: This exam was performed using automated exposure control, adjustment of mA or kV according to patient size, and/or use of iterative reconstruction technique. COMPARISON: None. FINDINGS: There is no definite acute infarct given the limited sensitivity of CT versus MRI. There is no discrete intracranial mass, mass effect, or intracranial hemorrhage. The surrounding soft tissues and bony structures are essentially unremarkable. IMPRESSION: No evidence of acute intracranial pathology. Electronically signed by Jono Kincaid 03/27/2019 9:24 PM) - CONSULTS/PCP/HOSPITALIST Notification #1 *Consult/PCP/Hospitalist*: Dr Wylie Time Discussed: 23:41 Consult Disposition: Admit Departure - Departure Date of Disposition Decision: 03/27/19 Time of Disposition Decision: 23:40 DIAGNOSIS: Uncontrolled hypertension, Dizziness Disposition: ADMITTED INPATIENT 09 Certified Medical Emergency: Emergent Condition: Stable Additional Instructions: ED Follow Up Instructions: You have been treated by a care provider in the Emergency Department. These instructions are being provided to you so you can have an understanding of how to care for yourself upon discharge. Upon discharge from the Emergency Department, you are responsible for making arrangements for follow-up care by a physician of your choice. Take all prescribed medications as directed. Return to the Emergency Department immediately for any new or worsening symptoms. You may call the Physician Referral phone number at [phone] to obtain a list of Physicians who are taking new patients. Prescriptions: Hydralazine [Apresoline] 25 mg PO Q8H PRN PRN #30 tab PRN Reason: Blood Pressure Referrals and Follow-Ups: Julian Kruger MD [Primary Care Provider] - - Critical Care Note This patient required my direct & personal management of CC.: Yes Total Time (mins): 65 Critical Care Statement: This patient required my direct personal management to treat or rule out processes, the absence of which, could potentiallly result in sudden, clinically significant life or limb threatening deterioration. Attestation - Physician/ ITALO Attestation Patient care was provided by Advanced Practice Provider:: No The physician spent face to face time with patient:: Yes Advanced Practice Provider documentation review:: Supervising physician onsite and consulted in the evaluation and care of this patient. The physician did have a face to face encounter with the patient. This chart was documented by the indicated scribe, (Ninfa Kincaid Scribe) and accurately reflects the services I performed and decisions made by me, Lavonne Berry MD, as attested by the provider's signature.
[2019-03-27 20:36] LABS: BASO# 0.06 X1000 (0.0-0.2); BASO% 0.6 % (0.0-0.8); EOS# 1.06 X1000 (0.0-0.7); EOS% 9.8 % (0.0-10.0); HEMATOCRIT 41.3 % (42.0-52.0); HEMOGLOBIN 13.2 g/dL (14.0-18.0); IMM GRAN# 0.02 X1000 (0.0-0.04); IMM GRAN% 0.2 % (0.0-0.5); LYMPH# 3.42 X1000 (1.2-3.4); LYMPH% 31.7 % (20.5-51.1); MCH 29.4 PG (27-31); MONO% 6.5 % (1.7-9.3); MPV 9.4 FL (7.4-10.4); NEUT# 5.53 X1000 (1.4-6.5); NEUT% 51.2 % (42.2-75.2); PLT 248 X1000 (130-400); RBC 4.49 XMIL (4.7-6.1); RDW 12.4 % (11.5-14.5); WBC 10.79 X1000 (4.8-10.8)
[2019-03-27 20:52] LABS: PROTIME 13.7 Seconds (11.0-16.0)
[2019-03-27 20:53] LABS: PTT 31.1 Seconds (22.3-41.8)
[2019-03-27 20:55] LABS: AGAP 14; ALBUMIN 4.4 g/dL (3.5-5.0); ALKALINE PHOSPHATASE 82 U/L (32-122); BUN 19 mg/dL (8-22); CALCIUM 9.5 mg/dL (8.8-10.2); CHLORIDE 102 mmol/L (98-107); COSMO 280; CREATININE 1.1 mg/dL (0.7-1.2); ESTIMATED GFR > 60; GLUCOSE 96 mg/dL (70-104); GOT 18 U/L (10-34); GPT 14 U/L (10-44); POTASSIUM 4.2 mmol/L (3.5-5.1); SODIUM 139 mmol/L (136-145); TCO2 23 mmol/L (25-35)
[2019-03-27] MEDS ORDERED: LABETALOL ONE (21:03)
[2019-03-27] MEDS ORDERED: LABETALOL IV ONE (21:05)
--- NOTE | 2019-03-27 21:12 | EKG Report ---
Test Performed on : 03/27/2019 8:15:45 PM Test Reason : HTN, dizziness Blood Pressure : / mmHG Vent. Rate : 082 BPM Atrial Rate : 082 BPM P-R Int : 116 ms QRS Dur : 094 ms QT Int : 368 ms P-R-T Axes : 044 007 014 degrees QTc Int : 429 ms Normal sinus rhythm. Moderate voltage criteria for LVH, may be normal variant Borderline ECG When compared with ECG of 19-APR-2018 13:50, No significant change was found Unconfirmed Result
--- NOTE | 2019-03-27 21:26 | Diag Imaging Result Doc PS360 ---
EXAM: CT HEAD W/O CONTRAST INDICATION: headache, dizziness TECHNIQUE: This exam was performed using automated exposure control, adjustment of mA or kV according to patient size, and/or use of iterative reconstruction technique. COMPARISON: None. FINDINGS: There is no definite acute infarct given the limited sensitivity of CT versus MRI. There is no discrete intracranial mass, mass effect, or intracranial hemorrhage. The surrounding soft tissues and bony structures are essentially unremarkable. IMPRESSION: No evidence of acute intracranial pathology. Electronically signed by Jono Kincaid 03/27/2019 9:24 PM
[2019-03-27] MEDS: APRESOLINE IV ONE ×2 (21:40→22:51)
[2019-03-27] MEDS ORDERED: ANTIVERT PO ONE (21:44)
[2019-03-27] MEDS ORDERED: NITROGLYCERIN TOP PRN (23:27)
[2019-03-27] MEDS ORDERED: LABETALOL IV PRN (23:54)
[2019-03-27] MEDS ORDERED: APRESOLINE IV PRN (23:54)
[2019-03-28] MEDS ORDERED: ZOFRAN IV PRN (00:28)
[2019-03-28] MEDS ORDERED: VENTOLIN HFA INH PRN (08:09)
[2019-03-28] MEDS ORDERED: DUONEB (A & A) INH PRN (08:09)
[2019-03-28] MEDS: AVAPRO PO SCH (09:18)
[2019-03-28] MEDS: ASPIRIN EC PO SCH (09:19)
[2019-03-28] MEDS: NORVASC PO SCH (09:19)
[2019-03-28] MEDS: ADVAIR 500/50 DISKUS INH SCH ×2 (09:27→20:08)
[2019-03-28] MEDS ORDERED: TYLENOL PO PRN (10:06)
[2019-03-28 13:40] LABS: URINE SOURCE CLEAN CATCH
[2019-03-28 13:44] LABS: BILIRUBIN URINE NEGATIVE (NEGATIVE); BLOOD URINE NEGATIVE (NEGATIVE); COLOR YELLOW; GLUCOSE URINE NEGATIVE (NEGATIVE); KETONE URINE NEGATIVE (NEGATIVE); LEUKOCYTES URINE NEGATIVE (NEGATIVE); NITRITE URINE NEGATIVE (NEGATIVE); PROTEIN URINE TRACE mg/dL (NEGATIVE); SP GRAVITY URINE 1.017; TURBIDITY URINE CLEAR (CLEAR); UR EPITHELIAL CELLS <10 /HPF (<10); URINE BACTERIA NEGATIVE /HPF; URINE RBC <10 /HPF (<10); URINE WBC <10 /HPF (<10); UROBILINOGEN URINE NORMAL (NORMAL)
--- NOTE | 2019-03-28 17:25 | Diag Imaging Result Doc PS360 ---
EXAM: MRI BRAIN W/O CONTRAST 03/28/2019 HISTORY: dizziness, HTN TECHNIQUE: T1 sagittal and axial, axial T2, FLAIR, DWI and coronal gradient echo. COMMENT: There are no previous studies available for comparison. There is no evidence of bleed, mass effect, or abnormal extra-axial fluid collection. There is increased T2-weighted signal intensity in the periventricular white matter of both hemispheres particularly adjacent to the atria of the lateral ventricles. There is no evidence for restricted diffusion. IMPRESSION: Chronic ischemic microvascular changes. No evidence of acute disease. Electronically signed by Julián Pretty 03/28/2019 5:23 PM
--- NOTE | 2019-03-28 17:26 | Diag Imaging Result Doc PS360 ---
EXAM: MRA BRAIN W/O CONTRAST 03/28/2019 HISTORY: dizziness, HTN TECHNIQUE: 3-D [id number] COMMENT: There is no evidence of aneurysm or major branch occlusion. There is some deviation of the A1 segment of the right anterior cerebral artery. No major branch occlusion is present however. The possibility of small vessel disease cannot be excluded. IMPRESSION: No evidence of aneurysm or major branch occlusion. Electronically signed by Julián Pretty 03/28/2019 5:24 PM
--- NOTE | 2019-03-28 17:33 | Diag Imaging Result Doc PS360 ---
EXAM: MRA NECK W/O CONT 03/28/2019 HISTORY: HTN, dizziness TECHNIQUE: 3-D [id number] COMMENT: The common carotid and vertebral arteries are patent bilaterally. The origins of the common carotids are not well seen. The internal carotid arteries are somewhat obscured proximally. There is flow throughout the remainder of the cervical internal carotid arteries without evidence of significant stenosis. IMPRESSION: Suboptimal study. No definite abnormality. Electronically signed by Julián Pretty 03/28/2019 5:30 PM
--- NOTE | 2019-03-28 17:39 | Diag Imaging Result Doc PS360 ---
EXAM: CHEST-2 VIEWS 03/28/2019 HISTORY: wheezing TECHNIQUE: Two views of the chest COMMENT: There is no evidence of acute cardiac or pulmonary disease. Compared to 02/15/2019 there has been no significant change. IMPRESSION: No evidence of acute disease. Electronically signed by Julián Pretty 03/28/2019 5:36 PM
--- NOTE | 2019-03-28 18:56 | HISTORY AND PHYSICAL ---
PRIMARY CARE PROVIDER: Dr. Kruger. CHIEF COMPLAINT: Dizziness. HISTORY OF PRESENT ILLNESS: Mr. Simón Gusman is a 73-year-old male with a medical history of BPH with retention, history of TURP, hypertension for at least 25+ years, and asthma who is currently having some wheezing with auscultation. He states that he went to Urgent Care last Monday six days ago. They started him on Klonopin and amlodipine according to him. He still continued to have blood pressures in the 200s over 100s. He normally goes to [facility], and that is where he has his blood pressure checked. He had been having 1 dizzy spell on Monday, and then today really since night started having continuous dizzy spell. He woke up with it, and some blurred vision. It did not really go away, and he had a blood pressure again in the 200s over 100s so he presented here. He said he has noticed that the blood pressure has been higher over the last 3 to 4 days despite taking the new medications that he was given. He is admitted here. He has been started on several antihypertensives, and now he is much more controlled in the 150s. PAST MEDICAL HISTORY: 1. Hypertension. 2. BPH with retention, and history of TURP. 3. Asthma. 4. Vertigo. PAST SURGICAL HISTORY: 1. Bilateral inguinal hernia repairs. 2. TURP with suprapubic catheter reported as being placed so has since been removed as he does not have a suprapubic catheter. SOCIAL HISTORY: Denies tobacco, alcohol or illicit drug use. He has been 51 years. FAMILY HISTORY: Mother stroke. Father with heart disease. ALLERGIES: No known drug allergies. HOME MEDICATIONS: 1. Advair 500-50 1 puff inhaled twice daily. 2. Albuterol 2 puffs inhaled every 4 hours p.r.n. 3. Aspirin enteric-coated 81 mg p.o. daily. 4. Clonidine 0.1 mg 1 tablet p.o. daily. 5. Albuterol/Atrovent nebs inhaled 4 times a day. 6. Irbesartan 300 mg p.o. daily. 7. Norvasc 5 mg p.o. daily. 8. Prednisone 20 mg p.o. daily. 9. Apresoline 25 mg p.o. every 8 hours p.r.n. 10. He states he was started on the clonidine and amlodipine recently. REVIEW OF SYSTEMS: Fourteen point review of systems are complete, and all were negative except for those mentioned above in HPI. PHYSICAL EXAMINATION: VITAL SIGNS: Temperature 97.9 degrees, heart rate 84, respiratory rate 18, blood pressure 159/76, and O2 saturation 100% on room air. GENERAL: Mr. Simón Youssef is a 73-year-old male who is in no acute distress. He is able to answer questions appropriately. HEENT: Atraumatic, normocephalic. Pupils equal, round, and reactive to light. Extraocular movements intact. Mucous membranes are moist. NECK: Trachea midline. CARDIOVASCULAR: S1, S2. Regular rate and rhythm. No rubs, gallops, murmurs. He has got 1 to 2+ lower extremity pitting edema, +2 dorsalis and radial pulses. Negative JVD or carotid bruits. PULMONARY: Inspiratory wheezes noted anterior and posteriorly in all lobes. No accessory muscle use or work of breathing noted. He is tolerating room air. GI: Soft, nontender, and nondistended. Positive bowel sounds x4. EXTREMITIES: Moves all extremities equally with full range of motion. NEUROLOGIC: Alert and oriented x3. Follows commands. Sensory is intact. SKIN: Warm, dry, and intact. LABORATORY DATA: White blood cells 10,000, hemoglobin 13, hematocrit 41, and platelet count 248,000. INR is 1.00. PTT 31.1. Sodium 139, potassium 4.2, BUN 19, creatinine is 1.1, glucose 96, calcium 9.5, bilirubin 0.90, AST 18, and ALT 14. Troponin is 14. ProBNP 40 and albumin 4.4. IMAGING: Head CT negative. EKG normal sinus rhythm, rate 82, and QTc 429. ASSESSMENT AND PLAN: 1. Complaints of dizziness, likely associated with hypertension. Initial head CT is negative. He has had MRI and MRA of the brain, and the neck ordered. He is less dizzy since the blood pressure has been more controlled. 2. Uncontrolled hypertension. Currently, he is now on irbesartan with p.r.n. hydralazine, labetalol, and nitroglycerin. 3. History of BPH. 4. History of asthma, he currently has wheezes. He did not have a chest x-ray performed so we will go ahead and order chest x-ray, however, he is tolerating 100% O2 saturations, and he has nebulizers ordered. 5. Deep venous thrombosis prophylaxis. SCD's. Dictated by ALLY Chiang for Justin Corona MD cc: ALLY Chiang MD
--- NOTE | 2019-03-29 02:53 | HISTORY AND PHYSICAL ---
ADDENDUM: Patient seen and examined by myself. Full note dictated and discussed with nurse practitioner. Presented to the hospital noting that his blood pressures were low. States that he was recently given blood pressure medication, but he has not filled those. States he has history of clonidine and Norvasc. Denies any chest pain, palpitations. Blood pressures were markedly elevated at 217/106 in the ER. We are going to admit to the hospital, attempt better blood pressure control and we will follow. cc: Justin Corona MD
[2019-03-29 06:21] LABS: BASO# 0.04 X1000 (0.0-0.2); BASO% 0.4 % (0.0-0.8); EOS# 1.23 X1000 (0.0-0.7); EOS% 13.6 % (0.0-10.0); HEMATOCRIT 41.3 % (42.0-52.0); HEMOGLOBIN 12.9 g/dL (14.0-18.0); IMM GRAN# 0.01 X1000 (0.0-0.04); IMM GRAN% 0.1 % (0.0-0.5); LYMPH# 2.96 X1000 (1.2-3.4); LYMPH% 32.6 % (20.5-51.1); MCH 29.3 PG (27-31); MCHC 31.2 g/dL (33-37); MCV 93.7 FL (81-99); MONO% 7.7 % (1.7-9.3); MPV 9.7 FL (7.4-10.4); NEUT# 4.13 X1000 (1.4-6.5); NEUT% 45.6 % (42.2-75.2); PLT 251 X1000 (130-400); RBC 4.41 XMIL (4.7-6.1); RDW 12.8 % (11.5-14.5); WBC 9.07 X1000 (4.8-10.8)
[2019-03-29] MEDS ORDERED: TYLENOL PO PRN (06:30)
[2019-03-29 06:39] LABS: ALBUMIN 3.9 g/dL (3.5-5.0); CALCIUM 9.3 mg/dL (8.8-10.2); CREATININE 1.4 mg/dL (0.7-1.2); POTASSIUM 4.1 mmol/L (3.5-5.1); TOTAL BILIRUBIN 1.1 mg/dL (0.20-1.00); TOTAL PROTEIN 7.4 g/dL (6.3-8.3)
[2019-03-29] MEDS: AVAPRO PO SCH (08:54)
[2019-03-29] MEDS: ASPIRIN EC PO SCH (08:54)
[2019-03-29] MEDS: NORVASC PO SCH (08:54)
[2019-03-29 11:32] VITALS: BP 161/95
[2019-03-29] MEDS ORDERED: CATAPRES PO SCH (21:00)
--- NOTE | 2019-03-29 23:43 | DISCHARGE SUMMARY ---
ADMISSION DATE: 03/28/2019 DISCHARGE DATE: 03/29/2019 ADMISSION DIAGNOSES: 1. Complaints of dizziness. 2. Uncontrolled hypertension. 3. History of BPH. 4. History of asthma with current wheezing. DISCHARGE DIAGNOSES: 1. Dizziness, resolved. Imaging negative. 2. Uncontrolled hypertension, much more controlled. 3. History of BPH. 4. History of asthma, stable. CONSULTATIONS: None. SURGERIES AND PROCEDURES: None. HOSPITAL COURSE: Mr. Simón Youssef is a 73-year-old male, presented to emergency department at [facility] [place] on 03/27/2019 with complaints of dizziness. Apparently, on Monday, which was 6 to 7 days ago, he was started on more antihypertensives because he was running blood pressure 200s to 100s. He had a short dizzy spell on Monday and then on the , he woke up with more dizziness, blurred vision, blood pressure in the 200s that would not improve so then he presented to [facility] [place] ER, started back on antihypertensives. Blood pressure is more controlled. Dizziness resolved. Brain MRI, head CT, all negative and he is safe for discharge home. DISCHARGE VITAL SIGNS: Temperature 97.9 degrees, heart rate 75, respiratory rate 20, blood pressure 161/95, O2 saturation 95% on room air. DISCHARGE LAB DATA: White blood cells 9000, hemoglobin 12, hematocrit 41, platelet count 251,000. Sodium 140, potassium 4.1, BUN 25, creatinine is 1.4, glucose 91, calcium 9.3, magnesium 2.0, bilirubin is 1.10, AST 14, ALT 11, albumin 3.9. IMAGING: Head CT negative. Brain MRI, MRA negative. Neck MRA negative. Chest x-ray negative. EKG normal sinus rhythm, rate 82, QTc is 429. DISCHARGE MEDICATIONS: 1. Advair 500/50 one puff inhaled twice daily. 2. Albuterol 2 puffs inhaled every 4 hours p.r.n. 3. Aspirin enteric-coated 81 mg p.o. daily. 4. Clonidine 0.1 mg p.o. daily. 5. Irbesartan 300 mg p.o. daily. 6. Norvasc 5 mg p.o. daily. 7. Prednisone 20 mg p.o. daily. 8. Apresoline 25 mg p.o. every 8 hours. 9. Albuterol Atrovent nebulizers 4 times a day as needed. DISCHARGE DIET: Heart healthy. DISCHARGE ACTIVITY: As tolerated. DISCHARGE INSTRUCTIONS: Return to the emergency department immediately for any new or worsening symptoms. Take all medications as prescribed. DISCHARGE DISPOSITION: Home. PHYSICIAN FOLLOWUP: Dr. Kruger. Dictated by ALLY Chiang for Justin Corona MD cc: ALLY Chiang MD
--- NOTE | 2019-03-29 23:44 | DISCHARGE SUMMARY ---
ADMISSION DATE: 03/27/2019 DISCHARGE DATE: 03/29/2019 ADDENDUM: Patient seen and examined by myself. Full note dictated and discussed with nurse practitioner. Patient is a very pleasant 73-year-old male who presented to the hospital with dizziness and elevated blood pressure. Notes his dizziness has resolved. Blood pressures have improved thankfully. We will discharge him. cc: Justin Corona MD
== END 2019-03-29 12:49 | disposition home or self-care (01) ==
LOC: P.ED 15:15 → P.MEDSURG 15:15 → SUATTDRO 03-28 02:11
PROVIDERS: ATTEND Family Medicine